=== PATIENT | male | born 1960 | race Caucasian/White ===

== ENCOUNTER 2017-01-09 19:07 | Emergency (ER) | payer OTHER ==
[2017-01-09 19:23] VITALS: RESP 16; TEMP 98.1
[2017-01-09] MEDS ORDERED: HYDROCOD/APAP 5/325 PREPACK#6 BTL TAKEHOME ONE (19:56)
[2017-01-09] MEDS ORDERED: KETOROLAC 30 MG/1 ML SDV IM ONE (19:56)
--- NOTE | 2017-01-09 20:09 | EDPHY ---
H & P Time Seen by Provider: 01/09/17 19:15 HPI/ROS: CHIEF COMPLAINT: Toe injury HISTORY OF PRESENT ILLNESS: 56-year-old male had a steel plate fall onto his right great toe. This occurred at work. No other injury. No trauma to the lower extremity with the exception of the toe. Complaining of burning sensation and pain over the right toe. Patient was otherwise well prior to the event. REVIEW OF SYSTEMS: A ten point review of systems was performed and is negative with the exception of the items mentioned in the HPI PAST MEDICAL HISTORY: Hypertension SOCIAL HISTORY: Nonsmoker. GENERAL APPEARANCE: Alert, moderate distress secondary to pain in his right great toe. FOCUSED EXAM OF right lower extremity: No trauma to the knee or ankle. No trauma to the foot with the exception of the right great toe. Foot is warm and dry. Right great toe: Distal phalanx from the IP joint to the tip is swollen, ecchymotic, with a small amount of subungual hematoma. Very tender to palpation. Normal capillary refill. No lacerations. No nail avulsion. Neurovascular exam: Good capillary refill, normal motor exam, normal neurologic exam. Smoking Status: Never smoked Constitutional: Initial Vital Signs Temperature (C) 36.7 C 01/09/17 19:20 Heart Rate 88 01/09/17 19:20 Respiratory Rate 16 01/09/17 19:20 Blood Pressure 150/108 H 01/09/17 19:20 O2 Sat (%) 95 01/09/17 19:20 O2 Delivery Mode Room Air Allergies/Adverse Reactions: bee pollen [Bee Pollen] Allergy (Verified 01/09/17 19:19) Home Medications: Medication Instructions Recorded NK [No Known Home Meds] 01/09/17 MDM/Departure - MDM Imaging Results: Imaging Impressions Toe X-Ray 01/09/17 19:20 Impression: Fractures involving the great toe distal phalanx. Imaging: I viewed and interpreted images myself Medications Given: Discontinued Medications Hydrocodone Bitart/Acetaminophen ([place] 5/325mg Prepack#6) 1 btl TAKEHOME EDNOW ONE Stop: 01/09/17 19:57 Last Admin: 01/09/17 20:05 Dose: 1 btl Ketorolac Tromethamine (Toradol) 30 mg IM EDNOW ONE Stop: 01/09/17 19:57 Last Admin: 01/09/17 20:06 Dose: 30 mg ED Course/Re-evaluation: X-ray demonstrates fractures of the distal phalanx. I discussed with the patient the importance of elevation and ice to help with the contusion which is developing. Patient's toe was myriam-taped, postop shoe was provided, and crutches. Patient is to be nonweightbearing until he is seen by Orthopedic surgery. He will follow up with workman's compensation to ensure appropriate follow-up, no work until Friday. Keep the foot elevated as much as possible. Ice. Ibuprofen for pain. Prepack of 6 hydrocodone tablets for severe pain. Differential Diagnosis: Differential diagnosis for the patient's injury was considered including but not limited to contusion, abrasion, laceration, fracture, open fracture, or dislocation. - Depart Disposition: Home, Routine, Self-Care Clinical Impression: Fracture of right great toe Qualifiers: Encounter type: initial encounter Fracture type: closed Phalanx: distal Fracture alignment: nondisplaced Qualified Code(s): S92.424A - Nondisplaced fracture of distal phalanx of right great toe, initial encounter for closed fracture Contusion Qualifiers: Encounter type: initial encounter Contusion area: toe Toe: great toe Damage to nail status: with damage Laterality: right Qualified Code(s): S90.211A - Contusion of right great toe with damage to nail, initial encounter Condition: Good Instructions: Hydrocodone/Acetaminophen (By mouth), Toe Fracture (ED) Additional Instructions: Mainstay of therapy is rest, ice, immobilization, elevation, and nonsteroidal anti-inflammatories for pain and to decrease swelling. Apply ice for 20-30 minutes every 2-3 hours for the next 48 hours. I recommend Ibuprofen (Motrin, Advil) or Naproxen Sodium (Aleve) for pain and anti-inflammatory effects. You may take either one, but do not take both. Your dose is: Ibuprofen 600 mg every 6-8 hours with food. OR Naproxen Sodium (Aleve) 220 mg every 12 hours. Okay to use hydrocodone as needed for severe pain. No weight-bearing until you are seen in follow-up by an orthopedic surgeon. Off work until Friday. You do need to to follow up with an orthopedic surgeon. Your workmen's compensation provider may directly to a specific specialist. Otherwise follow up with the orthopedic surgeon as directed below. Followup with the physician as directed. Referrals: NONE *PRIMARY CARE P,. [Primary Care Provider] - As per Instructions Emilio Lu MD [Medical Doctor] - As per Instructions
[2017-01-09 20:13] VITALS: O2SAT 96
[2017-01-09 20:16] VITALS: BP 163/104; PULSE 69
== END 2017-01-09 20:28 | disposition home or self-care (01) ==
LOC: CED 19:07
DX: S92.424A Nondisplaced fracture of distal phalanx of right great toe, initial encounter for closed fracture (principal); S90.211A Contusion of right great toe with damage to nail, initial encounter; I10 Essential (primary) hypertension; W20.8XXA Other cause of strike by thrown, projected or falling object, initial encounter; Y92.69 Other specified industrial and construction area as the place of occurrence of the external cause; Y99.0 Civilian activity done for income or pay; Y93.89 Activity, other specified
CPT/HCPCS: 73660-PO; J1885; L3260

== ENCOUNTER → 2017-02-11 | Outpatient (CLI) | payer OTHER | LOC: BRMIMAGING 13:39 | PROVIDERS: ATTEND Internal Medicine | DX: S92.421D Displaced fracture of distal phalanx of right great toe, subsequent encounter for fracture with routine healing (principal); Y99.0 Civilian activity done for income or pay | CPT/HCPCS: 73660-PO ==

== ENCOUNTER → 2017-03-18 | Outpatient (CLI) | payer OTHER | LOC: BRMIMAGING 16:43 | PROVIDERS: ATTEND Internal Medicine | DX: S92.421D Displaced fracture of distal phalanx of right great toe, subsequent encounter for fracture with routine healing (principal); M79.9 Soft tissue disorder, unspecified | CPT/HCPCS: 73660-PO ==